=== PATIENT | female | born 1975 | race American Indian/Alaskan Native ===

== ENCOUNTER 2019-08-11 07:06 | Day surgery (SDC) | payer OTHER ==
--- NOTE | 2019-08-11 07:37 | Anesthesia Day of Surgery ---
Anesthesia Day of Surgery - Day of Surgery Patient Examined: Yes Patient H&P Reviewed: Yes Patient is NPO: Yes
--- NOTE | 2019-08-11 07:38 | Anesthesia Consultation ---
Anesthesia Consult and Med Hx Date of service: 08/11/19 - Airway Anesthetic Teeth Evaluation: Good, Caps ROM Head & Neck: Adequate Mental/Hyoid Distance: Adequate Mallampati Class: Class I Intubation Access Assessment: Good - Pre-Operative Health Status ASA Pre-Surgery Classification: ASA2 Proposed Anesthetic Plan: General - Pulmonary Hx Smoking: Yes - Central Nervous System Hx Neuromuscular Disorder: Yes (Migraines) Hx Psychiatric Problems: No - Other Systems Hx Substance Use: Yes (Marijuana occas) Hx Cancer: No - Additional Comments Anesthesia Medical History Comments: +Med clearance
[2019-08-11] MEDS ORDERED: SUBLIMAZE ONE (07:45)
[2019-08-11] MEDS ORDERED: DIPRIVAN 10 MG/ML IV ONE (07:45)
[2019-08-11] MEDS ORDERED: QUELICIN ONE (07:46)
[2019-08-11] MEDS ORDERED: DECADRON ONE (07:46)
[2019-08-11] MEDS ORDERED: PHENYLEPHRINE/NS Syringe 1,000 MCG/10 ML IV ONE (07:46)
[2019-08-11] MEDS ORDERED: ZOFRAN ONE (07:46)
[2019-08-11] MEDS ORDERED: XYLOCAINE MPF 2% ONE (08:00)
[2019-08-11] MEDS ORDERED: SILVER NITRATE TP ONE (08:59)
[2019-08-11] MEDS ORDERED: LACTATED RINGERS 1,000 ML IV SCH (09:00)
[2019-08-11] MEDS ORDERED: VERSED ONE (09:37)
[2019-08-11] MEDS ORDERED: NACL 0.9% IR ONE (10:09)
[2019-08-11 11:41] VITALS: BP 130/78
--- NOTE | 2019-08-11 17:50 | Post Anesthesia Evaluation ---
- Post Anesthesia Evaluation Patient Participated: Yes Airway Patent: Yes Stable Respiratory Function: Yes Nausea/Vomiting: No Temp > 96.8F: Yes Pain Manageable: Yes Adequeate Hydration: Yes Anesthesia Complications: No
== END 2019-08-11 11:42 | disposition home or self-care (01) ==
LOC: OR 07:06
PROVIDERS: ATTEND Obstetrics & Gynecology
DX: N92.0 Excessive and frequent menstruation with regular cycle (principal)
CPT/HCPCS: 81025; 88305; A4217; J0330; J1100; J2250; J2370; J2405; J2704; J3010; J7120

== ENCOUNTER 2019-12-01 06:17 | Observation (INO) | payer OTHER ==
[2019-11-30 12:24] LABS: Basophils % (Auto) 0.3 % (0.0-1.8); Eosinophils # (Auto) 0.1 K/mm3 (0.0-0.4); Eosinophils % (Auto) 3.5 % (0.0-4.3); Hemoglobin 13.8 gm/dl (10.1-14.3); Lymphocytes # (Auto) 1.6 K/mm3 (1.2-5.4); Lymphocytes % (Auto) 47.3 % (13.4-35.0); Mean Corpuscular HGB Conc 34 % (30-34); Mean Corpuscular Volume 92 fl (79-97); Monocytes # (Auto) 0.3 K/mm3 (0.0-0.8); Monocytes % (Auto) 7.5 % (0.0-7.3); Platelet Count 253 K/mm3 (140-440); Red Blood Count 4.33 M/mm3 (3.65-5.03)
--- NOTE | 2019-11-30 12:27 | Anesthesia Consultation ---
Anesthesia Consult and Med Hx Date of service: 12/01/19 - Airway Anesthetic Teeth Evaluation: Good, Crowns ROM Head & Neck: Adequate Mental/Hyoid Distance: Adequate Mallampati Class: Class II Intubation Access Assessment: Good - Pulmonary Exam CTA: Yes - Cardiac Exam Cardiac Exam: No Murmur - Pre-Operative Health Status ASA Pre-Surgery Classification: ASA2 Proposed Anesthetic Plan: General Nerve Block: TAP - Pulmonary Hx Smoking: Yes - Central Nervous System Hx Neuromuscular Disorder: Yes (Migraines) Hx Psychiatric Problems: No - Other Systems Hx Substance Use: Yes (Marijuana occas) Hx Cancer: No
[~2019-12-01 06:17] MED LIST: CELECOXIB 200 MG CAP PO NR; GABAPENTIN 300 MG CAP PO NR; MIDAZOLAM 2 MG/2 ML INJ IV NR; fentaNYL 100 MCG/2 ML INJ IV PRN
[2019-12-01] MEDS ORDERED: BACTERIOSTATIC SODIUM CHLORIDE 0.9% 30 ML VIAL INFILTRATI ONE (06:32)
[2019-12-01] MEDS ORDERED: FAMOTIDINE 20 MG TAB ONE (06:32)
[2019-12-01] MEDS ORDERED: FAMOTIDINE 20 MG TAB PO SCH (07:00)
[2019-12-01] MEDS ORDERED: LACTATED RINGERS 1,000 ML IV SCH (07:00)
[2019-12-01] MEDS ORDERED: LIDOCAINE (2%) 20 MG/1 ML VIAL 20 ML MDV INFILTRATI NR (07:05)
[2019-12-01] MEDS ORDERED: BUPIVACAINE-EPINEPHRINE/PF 0.5%-1:200,000 (30 ML) VIAL INFILTRATI NR (07:06)
[2019-12-01] MEDS ORDERED: LIDOCAINE 2%/EPINEPHRINE 1:200,000 VIAL (20 ML) INFILTRATI NR (07:07)
[2019-12-01] MEDS ORDERED: GENTAMICIN 80 MG in SODIUM CHLORIDE 0.9% 100 ML IV ONE (07:12)
--- NOTE | 2019-12-01 07:12 | History and Physical Report ---
History of Present Illness Date of examination: 12/01/19 Date of admission: 12/01/2019 Chief complaint: Symptomatic uterine fibroids History of present illness: 44-year-old with a history symptomatic uterine fibroids. The patient reports having heavy painful menses. She reports the passage of clots during her cycle. A pelvic ultrasound was performed that demonstrated an enlarged uterus with findings of an 8.2 cm leiomyoma. Has elected to undergo definitive surgical management. Past History Past Medical History: other (uterine fibroids) Past Surgical History: tonsillectomy, other (tubal ligation) [employer] History: fibroids Social history: single, smoking - Obstetrical History : 4 Para: 3 Hx # Term Pregnancies: 3 Number of Pregnancies: 0 Spontaneous Abortions: 1 Induced : 0 Number of Living Children: 3 Medications and Allergies Allergies Allergy/AdvReac Type Severity Reaction Status Date / Time codeine Allergy severe N&V Verified 11/23/19 11:43 oxycodone [From Percocet] Allergy Severe N&V Verified 11/23/19 11:43 Penicillins Allergy Rash Verified 11/30/19 14:31 tramadol Allergy Severe N&V Verified 11/30/19 14:31 Home Medications Medication Instructions Recorded Confirmed Last Taken Type No Known Home Medications [No 08/05/19 11/23/19 Unknown History Reported Home Medications] Active Meds: Active Medications Celecoxib (Celebrex) 200 mg PO PREOP NR Stop: 12/01/19 18:00 Last Admin: 12/01/19 06:40 Dose: 200 mg Documented by: Fentanyl (Sublimaze) 100 mcg IV ONCE PRN PRN Reason: sedation for nerve block Stop: 12/01/19 18:00 Gabapentin (Gabapentin) 300 mg PO PREOP NR Stop: 12/01/19 18:00 Last Admin: 12/01/19 06:40 Dose: 300 mg Documented by: Lactated Ringer's (Lactated Ringers) 1,000 mls @ 100 mls/hr IV DIRECT BENI Last Admin: 12/01/19 06:39 Dose: 100 mls/hr Documented by: Midazolam HCl (Versed) 2 mg IV PREOP NR Stop: 12/01/19 20:00 Review of Systems All systems: negative Genitourinary: vaginal bleeding, pelvic pain - Vital Signs Vital signs: Vital Signs Temp Pulse Resp BP Pulse Ox 98.3 F 78 18 125/60 100 11/30/19 11:55 11/30/19 11:55 11/30/19 11:55 11/30/19 11:55 11/30/19 11:55 Temp Pulse Resp BP Pulse Ox 98.3 F 78 18 125/60 100 11/30/19 11:55 11/30/19 11:55 11/30/19 11:55 11/30/19 11:55 11/30/19 11:55 - Physical Exam Breasts: Positive: deferred Cardiovascular: Regular rate Lungs: Positive: Clear to auscultation Abdomen: Positive: normal appearance Results Result Diagrams: 11/30/19 12:00 Abnormal lab results 11/30/19 Range/Units 12:00 WBC 3.3 L (4.5-11.0) K/mm3 RDW 13.0 L (13.2-15.2) % Lymph % (Auto) 47.3 H (13.4-35.0) % [place] % (Auto) 7.5 H (0.0-7.3) % Seg Neutrophils # 1.4 L (1.8-7.7) K/mm3 All other labs normal. Assessment and Plan - Patient Problems (1) Uterine fibroid Current Visit: Yes Status: Acute Plan to address problem: The patient is scheduled to undergo a robotic hysterectomy and bilateral salpingectomy (2) Menorrhagia Current Visit: Yes Status: Acute (3) Dysmenorrhea Current Visit: Yes Status: Acute
[2019-12-01] MEDS ORDERED: LIDOCAINE (1%) 10 MG/1 ML VIAL 20 ML MDV ONE (07:13)
[2019-12-01] MEDS ORDERED: BUPIVACAINE-EPINEPHRINE/PF 0.25%-1:200,000 (30 ML) VIAL INFILTRATI ONE (07:13)
[2019-12-01] MEDS ORDERED: HYDROmorphone 1 MG/1 ML INJ ONE (07:18)
[2019-12-01] MEDS ORDERED: propofoL 200 MG/20 ML VIAL IV ONE (07:18)
[2019-12-01] MEDS ORDERED: ACETAMINOPHEN 325 MG TAB PO PRN (07:19)
[2019-12-01] MEDS ORDERED: HYDROmorphone 2 MG TAB PO PRN (07:19)
[2019-12-01] MEDS ORDERED: ROCURONIUM 50 MG/5 ML INJ IV ONE (07:21)
[2019-12-01] MEDS ORDERED: SUCCINYLCHOLINE CHLORIDE 200 MG/10 ML INJ MDV ONE (07:21)
[2019-12-01] MEDS ORDERED: LIDOCAINE MPF (2%) 20 MG/1 ML VIAL 5 ML ONE (07:22)
[2019-12-01] MEDS ORDERED: NEOMY 40 MG/POLYMYXIN B 200,000 UNITS/ML (GU) AMPULE IR ONE ×2 (07:25→08:42)
[2019-12-01] MEDS ORDERED: D5W/LACTATED RINGERS 1,000 ML IV SCH (08:00)
[2019-12-01] MEDS ORDERED: GENTAMICIN/NS 80 MG/100 ML 100 ML IV SCH (08:00)
[2019-12-01] MEDS ORDERED: SODIUM CHLORIDE 0.9% IRR 1,500 ML BOTTLE IR ONE (08:42)
[2019-12-01] MEDS ORDERED: SODIUM CHLORIDE 0.9% IRRIG SOLN 2000 ML IR ONE (08:43)
[2019-12-01] MEDS ORDERED: ONDANSETRON 4 MG/2 ML INJ ONE (09:28)
[2019-12-01] MEDS ORDERED: NEOSTIGMINE 10MG/10 ML INJ MDV ONE (09:29)
[2019-12-01] MEDS ORDERED: GLYCOPYRROLATE 0.4 MG/2 ML INJ ONE (09:29)
--- NOTE | 2019-12-01 09:48 | Anesthesia Day of Surgery ---
Anesthesia Day of Surgery - Day of Surgery Patient Examined: Yes Patient H&P Reviewed: Yes Patient is NPO: Yes Beta Blockers: No Cardiac Clearance: Yes Pulmonary Clearance: Yes Chun's Test: N/A
--- NOTE | 2019-12-01 10:13 | Operative Report ---
Operative Report Operative Report: Date of surgery: 12/01/2019 Preoperative diagnoses: Uterine fibroids; dysfunctional uterine bleeding; dy smenorrhea Postoperative diagnoses: Same as above Procedure: Robotic hysterectomy; Bilateral salpingectomy Surgeon: Stephanie Ellsworth M.D. Audit Control Clerk: Farhana Hwang Anesthesia: Gen. endotracheal anesthesia Estimated blood loss: 50 mL Pathology: Uterus, cervix, bilateral tubes, leiomyomas Indication: 44-year-old with a history of symptomatic uterine fibroids. The patient has elected to undergo definitive surgical management. Procedure: The patient was taken to the operating room and given general endotracheal anesthesia without complication. She is prepped and draped in a normal sterile fashion. A bivalve speculum was placed in the patient's vagina and a single- tooth tenaculum placed on the anterior lip of the cervix. The uterus was sounded with the uterine sound. A Hoverink uterine manipulator was placed in the bivalve speculum was then removed. Attention was then turned to the patient's abdomen where a millimeter supra umbilical skin incision was then made. A Veress needle was placed and peritoneal entry was verified water-filled syringe. Insufflation of the peritoneal cavity was performed with CO2 gas. The 12 mm trocar was then placed under direct visualization. An additional 8 mm trocar was placed on the patient's left and right lateral side just opposite of the supraumbilical trocar. An additional 5 mm right lateral trocar was then placed as the accessory port. The supraumbilical 12 mm fascial incision of the trocar site was closed using the Viral Ritchie device and 0 vicryl. The patient was then placed in steep Trendelenburg. The da Colt robot was then engaged. Gen. survey revealed a markedly enlarged fibroid uterus with multiple leiomyomas. The tubes and ovaries were normal in appearance. The tubes had evidence of a prior tubal ligation. A fenestrated forcep was placed in arm 2 and a vessel sealer was placed in arm 1. The surgeon then transferred to the surgical console. The mesosalpinx was then isolated on the right. The vessel sealer was used to coagulate the mesosalpinx which was then transected. The tube was transected from the ovary. The tubo-ovarian ligament was then coagulated and transected. The round ligament was then coagulated and transected also. The vesicouterine peritoneum was then entered from the patient's right side. The uterine vessels were then coagulated with the vessel sealer. The vessels were then transected . Attention was then turned to the patient's left side where the tubo-ovarian ligament and mesosalpinx were again isolated coagulated and transected. The vesical peritoneum was then entered from the left and joined in the midline. Peritoneum was reflected off of the lower uterine segment. Uterine vessels were then coagulated and then transected. The blood supply to the uterus was adequately contained, a posterior colpotomy was made. The V care ring was visualized. Posterior colpotomy was created with the monopolar scissors. The incision was continued circumferentially until anterior colpotomy was made. The cervix and uterus were amputated from the vaginal cuff. The dominant leiomyoma was excised from the uterine bed in order to decompress the uterus. The uterus then had to be bivalved in order to facilitate delivery through the vagina. The uterus was then removed along with the leiomyomas and tubes bilaterally through the vagina and a warm laparotomy sponge was placed and maintain the pneumoperitoneum. The vaginal cuff was then closed in a running fashion with V lock suture. Irrigation of the pelvis was performed. Hemoblast was applied to the incision. The skin was then reapproximated with 4-0 Monocryl. The tissue was sent to pathology which included the cervix, tubes, and uterus. The patient was then successfully extubated. She was then taken to the recovery room in stable condition. All sponge laps and needle counts were correct x2.
[2019-12-01] MEDS ORDERED: ONDANSETRON 4 MG/2 ML INJ IV PRN (10:15)
[2019-12-01] MEDS: HYDROmorphone 1 MG/1 ML INJ IV PRN ×2 (10:20→10:30)
[2019-12-01] MEDS ORDERED: D5W/LACTATED RINGERS 1,000 ML IV ONE (10:59)
[2019-12-01] MEDS ORDERED: IBUPROFEN 600 MG TAB PO SCH (12:00)
--- NOTE | 2019-12-01 14:48 | Post Anesthesia Evaluation ---
- Post Anesthesia Evaluation Patient Participated: Yes Airway Patent: Yes Stable Respiratory Function: Yes Nausea/Vomiting: Yes Temp > 96.8F: Yes Pain Manageable: Yes Adequeate Hydration: Yes Anesthesia Complications: No Block Receding Appropriately: Not Applicable Patient on Ventilator: No
[2019-12-01] MEDS: KETOROLAC 30 MG/1 ML INJ IV SCH (16:31)
[2019-12-01] MEDS: MORPHINE 4 MG/1 ML INJ IV PRN (21:53)
[2019-12-01] MEDS ORDERED: ZOLPIDEM 5 MG TAB PO PRN (22:00)
[2019-12-02] MEDS: MORPHINE 4 MG/1 ML INJ IV PRN (03:09)
[2019-12-02 06:07] LABS: Hematocrit 39.5 % (30.3-42.9); Hemoglobin 13.5 gm/dl (10.1-14.3)
[2019-12-02] MEDS: KETOROLAC 30 MG/1 ML INJ IV SCH ×2 (06:32→08:00)
--- NOTE | 2019-12-02 08:14 | Progress Note ---
Assessment and Plan - Patient Problems (1) Uterine fibroid Current Visit: Yes Status: Acute Plan to address problem: patient doing well discharge home (2) Menorrhagia Current Visit: Yes Status: Acute (3) Dysmenorrhea Current Visit: Yes Status: Acute Subjective - Subjective Date of service: 12/02/19 Interval history: Patient reports feeling well. Details of surgery discussed. Denies any emesis Patient reports: appetite normal, voiding normally, pain well controlled Objective - Vital Signs Latest vital signs: Vital Signs Temp Pulse Resp BP BP Pulse Ox 12/02/19 06:12 98.5 F 73 18 99/51 100 12/02/19 01:32 99.3 F 75 18 111/69 99 12/01/19 21:05 98.2 F 71 18 133/81 12/01/19 16:39 97.7 F 72 18 122/84 12/01/19 11:15 98.3 F 72 12 128/79 100 12/01/19 11:10 98.3 F 72 12 128/79 100 12/01/19 11:00 79 15 131/86 100 12/01/19 10:50 14 12/01/19 10:45 97.8 F 73 14 142/91 100 12/01/19 10:30 72 14 160/94 100 12/01/19 10:20 14 12/01/19 10:15 68 14 168/96 100 12/01/19 10:00 74 14 145/92 100 12/01/19 09:55 69 17 146/82 100 12/01/19 09:50 73 17 146/78 100 12/01/19 09:47 97.5 F L 77 12 140/78 98 Intake and Output 12/01/19 12/02/19 12/02/19 22:59 06:59 14:59 Intake Total 720 360 Output Total 1200 500 Balance -480 -140 Intake: Oral 480 Intake, Free Water 240 360 Output: Urine 1200 500 Indwelling Catheter 1200 500 Other: Total, Intake Amount 480 Total, Output Amount 1200 500 Voiding Method Indwelling Catheter - Exam Abdomen: Present: normal appearance, soft
--- NOTE | 2019-12-02 08:16 | Discharge Summary ---
Providers - Providers Date of Admission: 12/01/19 07:19 Date of discharge: 12/02/19 Attending physician: BRANDO PULIDO Primary care physician: F[employer]OCIATE Hospitalization Reason for admission: other (Uterine fibroids) Procedure: other (robotic hysterectomy) Incision: normal Discharge diagnosis: other (Uterine fibroids) Hospital course: Patient was admitted the day of surgery and underwent a robotic hysterectomy and salpingectomy. See op note. Postop uncomplicated Condition at discharge: Good Disposition: [id number] TO HOME OR SELFCARE - Discharge Diagnoses (1) Uterine fibroid Status: Acute (2) Menorrhagia Status: Acute (3) Dysmenorrhea Status: Acute Plan - Discharge Medications Prescriptions: Docusate Sodium [Colace] 100 mg PO BID PRN #60 capsule PRN Reason: Constipation Hydromorphone HCl [Dilaudid] 4 mg PO Q8H PRN #30 tablet PRN Reason: Pain , Severe (7-10) Ibuprofen [Motrin] 800 mg PO Q8HR PRN #60 tablet PRN Reason: Pain, Mild (1-3) - Provider Discharge Summary Activity: no sex for 6 weeks, no heavy lifting 4 weeks, no strenuous exercise Diet: routine Instructions: routine Additional instructions: [] Smoking cessation referral if applicable(refer to patient education folder for contact #) [] Refer to [facility] Booklet Call your doctor immediately for: * Fever > 100.5 * Heavy vaginal bleeding ( >1 pad per hour) * Severe persistent headache * Shortness of breath * Reddened, hot, painful area to leg or breast * Drainage or odor from incision. * Keep incision clean and dry at all times and follow doctor's instructions regarding bathing/showering schedule followup in 4 weeks - Follow up plan
[2019-12-02 11:45] VITALS: BP 123/82
== END 2019-12-02 11:47 | disposition home or self-care (01) ==
LOC: OR 06:17 → OB 07:19
PROVIDERS: ADMIT Obstetrics & Gynecology; ATTEND Obstetrics & Gynecology
DX: D25.9 Leiomyoma of uterus, unspecified (principal); N92.0 Excessive and frequent menstruation with regular cycle; N94.6 Dysmenorrhea, unspecified; Z98.51 Tubal ligation status; Z90.49 Acquired absence of other specified parts of digestive tract
CPT/HCPCS: 36415; 58573; 64450; 84703; 85014; 85018; 85025; 86850; 86900; 86901; 88307; 96374; 96375; 96376; A4217; G0378; J1170; J1580; J1885; J2250; J2270; J2405; J2704; J2710; J3010; J7120; J7121; S2900; J0330